=== PATIENT | female | born 1995 | race Caucasian/White ===

== ENCOUNTER 2022-08-10 13:57 | Outpatient (CLI) | payer BC, SELFPAY ==
[2022-08-10 19:36] LABS: Alanine Aminotransferase 25 U/L (6-35); Alkaline Phosphatase 81 U/L (38-126); Anion Gap 13 mmol/L (8-16); Aspartate Amino Transferase 50 U/L (14-36); Bilirubin,Total 0.4 mg/dL (0.2-1.3); Blood Urea Nitrogen 13 mg/dL (7-17); Calcium 9.3 mg/dL (8.4-10.2); Carbon Dioxide 25 mmol/L (22-30); Chloride 100 mmol/L (98-107); Cholesterol 209 mg/dL (0-200); Estimated Glomerular Filt Rate > 60; Glucose 82 mg/dL (65-110); HDL Direct 59 mg/dL; Potassium 3.7 mmol/L (3.4-5.0); Sodium 138 mmol/L (137-145); Triglycerides 255 mg/dL (<150)
[2022-08-10 19:41] LABS: Basophils Percent Auto 0.4 % (0.2-1.2); Eosinophils Absolute Auto 0.1 K/mm3 (0-0.3); Eosinophils Percent Auto 1.4 % (0-4.4); Hematocrit 40.3 % (37.0-47.0); Hemoglobin 13.2 g/dL (12.0-15.0); Immature Granulocyte Absolute 0.01 K/mm3 (0.00-0.031); Immature Granulocyte Percent A 0.1 % (0-0.5); Lymphocytes Absolute Auto 2.28 K/mm3 (0.9-3.2); Lymphocytes Percent Auto 28.8 % (18.3-44.2); Mean Corpuscular HGB Conc 32.8 g/dl (32-36); Mean Corpuscular Hemoglobin 30.3 pg (26-34); Mean Corpuscular Volume 92.6 fl (80-100); Monocytes Absolute Auto 0.5 K/mm3 (0.1-0.6); Monocytes Percent Auto 6.6 % (2.6-8.5); Neutrophils Percent Auto 62.7 % (45.5-73.1); Platelet Count Result 309 k/mm3 (150-375); Red Blood Count 4.35 M/mm3 (4.2-5.4); Red Cell Distribution Width 11.9 % (11.5-14.5); White Blood Count 7.9 K/mm3 (4.5-10.0)
[2022-08-10 19:48] LABS: LDL Cholesterol Direct 115 mg/dL
== END 2022-08-10 13:58 | disposition home or self-care (01) ==
PROVIDERS: PCP Family Medicine; Visit Provider Family Medicine
DX: Z00.00 Encounter for general adult medical examination without abnormal findings (principal)
CPT/HCPCS: 36415; 80053; 80061; 85025

== ENCOUNTER 2023-03-08 13:09 | Outpatient (CLI) | payer BC, SELFPAY ==
[2023-03-09 04:08] LABS: Appearance Urine Clear (Clear); Bilirubin Urine Negative (Negative); Blood Urine Negative (Negative); Color Urine Yellow (Yellow); Glucose Urine UA Negative (Negative); Ketones Urine Negative (Negative); Leukocyte Esterase Ur Negative LEU/UL (Negative); Nitrate Urine Negative (Negative); Protein Urine Negative (Negative); Urobilinogen Urine 0.2 mg/dL (<2.0)
[2023-03-09 07:19] LABS: Add Urine Microscopic? NO
== END 2023-03-08 13:10 | disposition home or self-care (01) ==
LOC: ANHBWCLAB 13:12
PROVIDERS: PCP Family Medicine; Visit Provider Nurse Practitioner
DX: R30.0 Dysuria (principal); R74.01 Elevation of levels of liver transaminase levels
CPT/HCPCS: 81003

== ENCOUNTER 2023-08-15 14:38 | Outpatient (CLI) | payer BC, SELFPAY ==
[2023-08-15 19:13] LABS: Hematocrit 39.6 % (37.0-47.0); Hemoglobin 13.2 g/dL (12.0-15.0); Mean Corpuscular HGB Conc 33.3 g/dl (32-36); Mean Corpuscular Hemoglobin 30.8 pg (26-34); Mean Corpuscular Volume 92.3 fl (80-100); Platelet Count Result 309 k/mm3 (150-375); Red Blood Count 4.29 M/mm3 (4.2-5.4); Red Cell Distribution Width 11.7 % (11.5-14.5); White Blood Count 7.4 K/mm3 (4.5-10.0)
[2023-08-15 19:55] LABS: Hepatitis B Surface Antigen Negative (Negative)
[2023-08-15 20:00] LABS: HAV RESULT Negative (Negative); Hepatitis B Core IgM Result Negative (Negative)
[2023-08-15 20:11] LABS: Alanine Aminotransferase 31 U/L (6-35); Albumin Level 4.9 g/dL (3.5-5.1); Alkaline Phosphatase 74 U/L (38-126); Anion Gap 6 mmol/L (8-16); Aspartate Amino Transferase 48 U/L (14-36); Bilirubin,Total 0.5 mg/dL (0.2-1.3); Blood Urea Nitrogen 8 mg/dL (7-17); Calcium 9.2 mg/dL (8.4-10.2); Carbon Dioxide 30 mmol/L (22-30); Chloride 101 mmol/L (98-107); Cholesterol 215 mg/dL (0-200); Estimated Glomerular Filt Rate > 60; Glucose 85 mg/dL (65-110); HDL Direct 58 mg/dL; Potassium 4.1 mmol/L (3.4-5.0); Sodium 137 mmol/L (137-145); Triglycerides 119 mg/dL (<150)
[2023-08-15 20:12] LABS: Hepatitis C Virus Antibody Negative (Negative)
[2023-08-15 20:22] LABS: LDL Cholesterol Direct 122 mg/dL
== END 2023-08-15 14:39 | disposition home or self-care (01) ==
LOC: ANHBWCLAB 14:39
PROVIDERS: PCP Family Medicine; Visit Provider Family Medicine
DX: R74.01 Elevation of levels of liver transaminase levels (principal); Z00.00 Encounter for general adult medical examination without abnormal findings
CPT/HCPCS: 36415; 80053; 80061; 80074; 85027

== ENCOUNTER 2024-01-25 12:01 | Outpatient (CLI) | payer BC, SELFPAY ==
[2024-01-25 18:58] LABS: Hematocrit 43.3 % (37.0-47.0); Hemoglobin 14.3 g/dL (12.0-15.0); Mean Corpuscular Hemoglobin 30.2 pg (26-34); Mean Corpuscular Volume 91.4 fl (80-100); Mean Platelet Volume 10.2 fl (7.4-10.4); Platelet Count Result 328 k/mm3 (150-375); Red Blood Count 4.74 M/mm3 (4.2-5.4); Red Cell Distribution Width 12.2 % (11.5-14.5); White Blood Count 5.9 K/mm3 (4.5-10.0)
[2024-01-25 19:06] LABS: Alanine Aminotransferase 46 U/L (6-35); Albumin Level 4.9 g/dL (3.5-5.1); Alkaline Phosphatase 65 U/L (38-126); Anion Gap 8 mmol/L (4-12); Aspartate Amino Transferase 83 U/L (14-36); Bilirubin,Total 0.5 mg/dL (0.2-1.3); Blood Urea Nitrogen 13 mg/dL (7-17); Carbon Dioxide 27 mmol/L (22-30); Chloride 104 mmol/L (98-107); Estimated Glomerular Filt Rate > 60; Glucose 83 mg/dL (65-110); Potassium 3.8 mmol/L (3.4-5.0); Sodium 139 mmol/L (137-145)
[2024-01-25 19:25] LABS: Free T4 Free Thyroxine 0.95 ng/mL (0.78-2.19)
[2024-01-25 19:40] LABS: Iron 137 ug/dL (37-170)
[2024-01-25 19:45] LABS: Percent Iron Saturation 42 % (20-50)
[2024-01-25 20:52] LABS: Folic Acid 10.5 ng/mL (2.76->20)
[2024-01-28 03:55] LABS: Thyroid Peroxidase Antibodies <1 IU/mL (<9)
== END 2024-01-25 12:02 | disposition home or self-care (01) ==
PROVIDERS: PCP Nurse Practitioner Adult Health; Visit Provider Nurse Practitioner Adult Health
DX: R61 Generalized hyperhidrosis (principal); R53.83 Other fatigue
CPT/HCPCS: 36415; 80053; 82306; 82607; 82728; 82746; 83540; 83550; 84439; 84443; 85027; 86376

== ENCOUNTER 2024-01-31 10:23 | Outpatient (CLI) | payer BC, SELFPAY ==
--- NOTE | ~2024-01-31 | US_ITS ---
Limited Abdominal Sonogram: Real-time sonographic imaging of the right upper quadrant was performed. Clinical History: Abnormal liver enzyme levels Findings: The liver appears mildly heterogeneous, with no evidence of mass lesion or bile duct dilat ation. Main portal vein demonstrates normal direction of flow. The gallbladder is well distended, and appears normal with no evidence of gallstone or wall thickening. The common bile duct measures 3 mm. The visualized pancreas, aorta, and IVC are unremarkable. Impression: Probable fatty infiltration of liver versus other chronic liver disease. Reviewed, dictated and finalized at location M. Impression: Probable fatty infiltration of liver versus other chronic liver disease.
== END 2024-01-31 10:24 ==
PROVIDERS: PCP Family Medicine; Visit Provider Family Medicine
DX: R74.01 Elevation of levels of liver transaminase levels (principal)
CPT/HCPCS: 76705

== ENCOUNTER 2024-06-28 10:01 | Outpatient (CLI) | payer BC, SELFPAY ==
[2024-06-28 19:29] LABS: Alanine Aminotransferase 57 U/L (6-35); Albumin Level 4.7 g/dL (3.5-5.1); Alkaline Phosphatase 67 U/L (38-126); Aspartate Amino Transferase 85 U/L (14-36); Bilirubin,Total 0.3 mg/dL (0.2-1.3)
== END 2024-06-28 10:02 | disposition home or self-care (01) ==
PROVIDERS: PCP Family Medicine; Visit Provider Family Medicine
DX: Z00.00 Encounter for general adult medical examination without abnormal findings (principal); R74.01 Elevation of levels of liver transaminase levels; F42.9 Obsessive-compulsive disorder, unspecified; R41.89 Other symptoms and signs involving cognitive functions and awareness; R53.83 Other fatigue; R61 Generalized hyperhidrosis; R51.9 Headache, unspecified; M26.609 Unspecified temporomandibular joint disorder, unspecified side
CPT/HCPCS: 36415; 80076

== ENCOUNTER 2025-02-05 07:34 | Outpatient (CLI) | payer BC, SELFPAY ==
--- OUTSIDE RECORDS SUMMARY | 2025-02-05 07:37 | XMS_ITS | Referral Summary ---
Author Organization [facility] Address [facility] [place] [address] Care Team Providers Care Vacuum Bottle Assembler Name Role Phone Tony Purcell MD Primary Care Provider [phone] Allergies Active Allergy Reactions Criticality Noted Date Comments Sulfa (Sulfonamide Antibiotics) Unknown,Hives Medium 1 Medications cyclobenzaprine (FLEXERIL) 10 mg tablet TAKE 1 TABLET BY MOUTH EVERY NIGHT AT BEDTIME NEEDED FOR MUSCLE SPASMS IN THE JAW 02/20/2024 Active escitalopram (LEXAPRO) 10 mg tablet Take 1 tablet (10 mg total) by mouth daily 03/25/2024 Active NuvaRing 0.12-0.015 mg/24 hr vaginal ring 03/30/2024 Active ibuprofen (ADVIL,MOTRIN) 800 mg tablet Take 1 tablet (800 mg total) by mouth 3 (three) times a day as needed for pain 01/25/2024 Active Active Problems Problem Noted Date Diagnosed Date Plantar warts 04/03/2024 Overview (04/03/2024): R Psychophysiological insomnia 05/30/2022 History of COVID-19 11/21/2020 Overview (04/03/2024): Last Assessment & Plan: Onset of symptoms on 11/08/2020, patient has met recovery criteria. Reassurance provided with regards to fatigue, muscle aches, and shortness of breath. Unremarkable exam. Recommend to continue vitamin D for 3 months, multivitamins, adequate hydration. SILVINA (generalized anxiety disorder) 08/28/2020 Overview (04/03/2024): Last Assessment & Plan: Under good control Continue current regimen, refilled fluoxetine 15 mg once daily She plans to establish with therapy She is in process of establishing with new PCP and therapist Recurrent major depressive disorder, in full rem ission 08/28/2020 Overview (04/03/2024): Last Assessment & Plan: Under good control Continue current regimen, tolerating well TMJ (temporomandibular joint syndrome) 9 Acne vulgaris 10/10/2018 Anxiety 08/25/2018 Obsessive compulsive disorder 08/25/2018 Tinnitus 06/09/2017 Gastroesophageal reflux disease 05/12/2017 Arthralgia of shoulder 01/19/2011 Social History Tobacco Use Types Packs/Day Years Used Date Smoking Tobacco: Never Personal Safety Answer Date Recorded Getting School Help Needed Not on file 04/03 Comments Unknown Sex and Gender Information Value Date Recorded Sex Assigned at Not on file Legal 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
--- OUTSIDE RECORDS SUMMARY | 2025-02-05 07:37 | XMS_ITS | Patient Health Record ---
Author Organization [facility] Address [address] [place] [address] Care Team Providers Care Director Of Slot Operations Name Role Phone Jeny Chen Unavailable [phone] Allergies No Known Allergies Reason For Referral No Information Medications Medication SIG (Take, Route, Frequency, Duration) Notes Start Date End Date Status NuvaRing Active FLUoxetine Active Social History Tobacco Use: Social History Observation Description Date Details (start date - stop date) Never Smoker NA - NA Smoking Question Answer Notes Are you a: nonsmoker Problems No Known Problems Plan Of Treatment No Information Insurance Providers Payer Name Payer Address Payer Phone Subscriber Number Group Number Insured Name Patient Relationship to Insured Coverage Start Date Coverage End Date [facility] [address] [place] [phone] [id number] Rubia Ford Self - patient is the insured Medical (General) History Surgical History Surgery Date(Month/Year)
--- OUTSIDE RECORDS SUMMARY | 2025-02-05 07:37 | XMS_ITS | Encounter Summary ---
Author Organization [facility] Address [address] [place] [address] Phone Care Team Providers Care Telephone Operator Receptionist Name Role Phone Iliana Villalobos MD Primary Care Provider Provider, Not On File Primary Care Provider Tony Aquino MD Primary Care Provider [phone] Reason for Visit * Reason Onset Date Comments Medication Refill 07/11/2020 Encounter Details Date Type Department Care Team (Late st Contact Info) Description 07/11/[facility] [address] [place] [address] [place] [address] [place] [id number] Medication Refill Social History Tobacco Use Types Packs/Day Years Used Date Smoking Tobacco: Never Smokeless Tobacco: Never Alcohol Use Standard Drinks/Week Comments Yes 4 (1 standard drink = 0.6 oz pur e alcohol) weekends PHQ-2 Answer Date Recorded Total Score - Questions 1-9 0 12/29 Sexually Active Control Partners Comments Yes Oral Contraceptive Male Comments No Sex and Gender Information Value Date Recorded Sex Assigned at Not on file Legal Sex Female 7:40 PM CDT Gender Identity Not on file Sexual Orientation Not on file 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 * Telephone Encounter - Jessica Matthew - 07/11/2020 8:20 AM CDT Received: []FAX [x]TELEPHONE CALL []MYCHART from: []PHARMACY [x]PATIENT/OTHER regarding medication management. Medication name and dose: Requested Prescriptions Pending Prescriptions Disp Refills ??? FLUoxetine (PROzac) 10 MG Capsule 90 Cap 1 Sig: Take 1 Cap by mouth daily. ??? NuvaRing 0.12-0.015 MG/24HR RING 4 Quantity: (30 day, 90 day, 3 monthly scripts) 30 day Pharmacy preference for this medication: [id number] [place], [place] - [facility] Outcome: [x]Medication pended, routed to surescripts []Medication refused []Informed caller of refills at pharmacy []Additional message to medication management RN []Verbal authorization for written order to pharmacy []Additional message to provider []Verified medication with pharmacy Jessica Medication Management documented in this encounter Plan of Treatment Not on file documented as of this encounter Visit Diagnoses Diagnosis Anxiety Anxiety state, unspecified documented in this encounter Additional Health Concerns Infection Onset Date Last Indicated Resolved Time Respiratory Rule-Out 11/29/2024 11/29/2024 025 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
--- OUTSIDE RECORDS SUMMARY | 2025-02-05 07:37 | XMS_ITS | Data Portability ---
Author Organization [facility] [place] Address [address] [place] [address] Care Team Providers Care Reed Man Name Role Phone LIZ SEQUEIRA Primary Care Provider Assessment Encounter Date Assessment Date Assessment LastModified by Organization Details LastModified Time 04/26/2023 04/26/2023 Annual gynecological exam performed. Patient will come back in a year unless there are new symptoms. [email or web address] Not available 04/26/2023 11:56:56 Plan of Treatment Reminders Order Date Submit Date Provider Last Modified By Organization Details Last Modified Time Details Appointments None recorded. Lab None recorded. Referral None recorded. Procedures None recorded. Surgeries None recorded. Imaging None recorded. Medication Orders NuvaRing 0.12 mg-0.015 mg/24 hr vaginal 2022 023 [id number] [address] [place], [place], [id number], 3 12:05:32 metronidazo le 500 mg tablet 2022 023 [place] [address] [id number] [address] [place], [place], [id number], 3 11:57:35 fluconazole 150 mg tablet 2022 023 [place] [address] [id number], [address] [place], [place], [id number], 3 11:57:31 nystatin-tr iamcinolone 100,000 unit/gram-0 .1 % topical ointment 2022 023 [id number], [address] [place], [place], [id number], 11:57:47 Patient TargetsNo targets recorded. Patient InstructionsNo instructions recorded. Reason for Referral None Reported. Results Created Date Observation Date Name Description Value Unit Range Abnormal Flag Note LastModifiedBy Organization Detail LastModifiedTime 03/30/20 23 03/30/2023 CT/GC AND TRICH OMONA S VAGIN LEIDY (RRNA ), SWAB chlamydia trachomatis, PCR Negati ve negati ve Not Available [facility] (Lab) [address] [place], [address], 03/31/2023 18:18:43 03/30/20 23 03/30/2023 CT/GC AND TRICH OMONA S VAGIN LEIDY (RRNA ), SWAB neisseria gonorrhoeae, PCR Negati ve negati ve Not Available [facility] (Lab) [address] [place], [address], 03/31/2023 18:18:43 03/30/20 23 03/30/2023 CT/GC AND TRICH OMONA S VAGIN LEIDY (RRNA ), SWAB trichomonas vaginalis ribosomal RNA (rrna) Negati ve negati ve Not Available [facility] (Lab) [address] [place], [address], 03/31/2023 18:18:43 03/30/20 23 03/30/2023 VAGIN ITIS/ VAGIN OSIS, DNA PROBE koby sp. detection, direct probe Negati ve negati ve Not Available [facility] (Lab) [address] [place], [address], 03/31/2023 18:18:44 03/30/20 23 03/30/2023 VAGIN ITIS/ VAGIN OSIS, DNA PROBE gardnerella vag. detection, direct probe Negati ve negati ve Not Available [facility] (Lab) [address] [place] [facility], [address], 03/31/2023 18:18:44 03/30/2003/30/2023 VAGIN ITIS/ VAGIN OSIS, DNA PROBE trichomonas vag. detection, direct probe Negati ve negati ve Not Available [facility] (Lab) [address], [place], [address], 03/31/2023 18:18:44 Result Notes None recorded. Procedures Surgical History Date Name Laterality Status Provider Name and Address Organization Details Recorded Time extraction of wisdom tooth completed [facility] 03/30/2023 10:44:15 Imaging Results None recorded. Procedure Notes None recorded. Medical Equipment None Reported. Allergies Allergen ID Allergen Name Allergen Category Reaction Reaction Severity Criticality Documentation Date Start Date Code Code System Note Provider Name and Address Organization Details Recorded Time Substance with sulfonami de structure and antibacte rial mechanism of action (substanc e) medicatio n hives moderate Not available 03/30/2023 [id number] SNOMED [facility] 10:41:54 Medications Name Sig Start Date Stop Date Status Note LastModified by Organization Details LastModified Time neomycin-po lymyxin-hyd rocort 3.5 mg/mL-10,00 0 unit/mL-1 % ear solution INSTILL 3 DROPS IN AFFECTED EAR(S) EVERY 8 HOURS FOR 7 DAYS 03/30 completed Not Available Not Available Not Available trazodone 50 mg tablet Take 1 tablet every day by oral route. active Not Available Not Available No t Available fluconazole 150 mg tablet TAKE 1 TABLET BY MOUTH NOW. REPEAT IN 7 DAYS 04/26 completed Not Available Not Available Not Available fluoxetine 10 mg tablet Take 1 tablet every day by oral route. active Not Available Not Available No t Available metronidazo le 500 mg tablet TAKE 1 TABLET BY MOUTH EVERY 12 HOURS FOR 7 DAYS 04/26 completed Not Available Not Available Not Available nystatin-tr iamcinolone 100,000 unit/gram-0 .1 % topical ointment APPLY TO THE AFFECTED AREA(S) BY TOPICAL ROUTE 2 TIMES PER DAY FOR 5 DAYS 04/26 completed Not Available Not Available Not Available amoxicillin 875 mg tablet 04/26 completed Not Available Not Available Not Available NuvaRing 0.12 mg-0.015 mg/24 hr vaginal Insert 1 vaginal ring every month by vaginal route as directed for 90 days. active Not Available Not Available No t Available Vitals Date Recorded Body height Body weight Systolic blood pressure Diastolic blood pressure Provider Name and Address Organization Details Last Updated DateTime 03/30/2023 162.56 cm 87321.6 g 115 mm[Hg] 75 mm[Hg] Jaja Reich [facility] 03/30/2023 10:41:50 Date Recorded Body height Body mass index (BMI) Body weight Systolic blood pressure Diastolic blood pressure Provider Name and Address Organization Details Last Updated DateTime 04/26/2023 162.56 cm 25.2 kg/m2 06295.08 g 115 mm[Hg] 78 mm[Hg] Olivia Blanc [facility] 11:57:14 Social History Question Answer Notes LastModified by [employer] Details LastModified Time Tobacco Smoking Status Never Smoker Jaja Reich [facility] 03/30/2023 10:44:05 What Is Your Level Of Alcohol Consumption? Occasional Information not available 03/30/2023 Are You Blind Or Do You Have Difficulty Seeing? No Information n ot available 03/30/2023 In The 14 Days Before Symptom Onset, Have You Had Close Contact With A Laboratory-confirm ed COVID-19 While That Case Was Ill? No Information n ot available 03/30/2023 In The 14 Days Before Symptom Onset, Have You Had Close Contact With A Person Who Is Under Investigation For COVID-19 While That Person Was Ill? No Information not available 03/30/2023 Have You Been To An Area Known To Be High Risk For COVID-19? No Information not available 03/30/2023 Are You Deaf Or Do You Have Serious Difficulty Hearing? No Information not available 03/30/2023 Sex: Unknown Functional Status Question Answer Note LastModified by Organizat ion Details LastModified Time Do you have difficulty walking or climbing stairs? No Information not available 03/30/2023 Are you able to walk? YESWOREST Information not available 03/30/2023 Are you able to care for yourself? Yes Information not available 03/30/2023 Do you have difficulty dressing or bathing? No Information not available 03/30/2023 Mental Status None recorded. Family History Relationship Description Onset Age of this Age Resolved Age Notes LastModified by Organization Details LastModified Time Father Asthma Not available 10:43:23 Father Hypertensive disorder Not available 2022 10:43:47 Maternal Grandmother Malignant tumor of breast Not available 2022 10:43:30 Mother Hypercholest erolemia Not available 2022 10:43:50 Paternal Grandfather Malignant tumor of lung Not available 2022 10:43:56 Medical History Condition Response Anxiety Disorder Y Allergies (Food, seasonal, environmental ) Y Depression/ depression Y Gynecological History Statement/Question Response Abnormal Pap N Flow Moderate Date of LMP 04/14/2023 Was last menstrual period normal Y STIs/STDs N HPV Vaccine Y Current Control Method Vaginal Rin g Are cycles usually normal Y Sexually Active? Y Menses Monthly Y Age of first menstrual cycle 13 Date of Last Pap Smear Sexual Problems? N LMP Definite Obstetrics History GPAL:G 0 P 0 0 0 0 Past Encounters Encounter ID Performer Location Encounter Start Date Encounter Closed Date Diagnosis/Indication Diagnosis SNOMED-CT Code Diagnosis ICD10 Code Diagnosis Note [id number] JEAN CARLOS [facility] [place] [address] [address] 03/30/2023 10:24:21 03/30/2023 11:54:50 Vaginitis 51473582 N76.0 suspect BV/yeast vs STIUA normal, cx sentvagini tis panel sentgc/ct/ trich testing sentblood STI panel declinedvu lvar care guidelines discussedc ondom use encouraged Rx sent, R/B/A discussedw ill update patient with results when availableR TC for WWE Time spent in visit is a total of 22 mins with at least 50% of visit consisting of counseling and review of plan of care. Venereal d isease screening 960346350 Z11.3 Urinary symptoms 0840333 08 R39.9 [id number] JEAN CARLOS [place] [address] [address] 04/26/2023 11:42:01 04/26/2023 12:30:14 Gynecologic examination 93096625 Z01.419 Take Calcium with Vitamin D 1200mg daily if not receiving in daily diet. It is strongly advised to have an annual flu shot and up can obtain at most pharmacies . If you have not had a TDap shot in the last 10 years you should obtain one as well. Discussed with patient & provided with informatio n regarding Gardisil vaccine to prevent the 4 strains for HPV that cause cervical cancer if under age 26. Encourage safe sexual practices, to use condoms and limit partners if not already in a monogamous relationsh ip. Do monthly self breast exams. Have mammogram yearly or every other year depending on family history. BRCA testing is now available for patients with strong genetic history of female cancer. If interested contact the office. Engage in daily exercise of low impact aerobic exercise 45-60 minutes 4-5 times weekly. Avoid tobacco and illicit drugs as well as using moderation with alcohol intake less than 1-2 8 oz beverages daily. This lifestyle behavior pattern will lead to less health conditions and longer life span. If BMI greater than 25 weight watchers or dietary consult advised. Patient received above instructio ns, and questions have been answered. If you have any questions please call or respond to this email. Patient was made aware of the patient portal and may obtain a paper copy of today's plan if desired.Blair chappell sentSTD Screen sentGeneti c ScreenColo n ScreenDexa ScreenRout ine Labs Contracept ion care management 540749390 Z30.9 Happy on nuvaring. RF sent x 1yr Health Concerns Section Related Observation LastModified by Organization Detai ls LastModified Time None Recorded Concern Status LastModified by Organization Details LastModified Time None Recorded Advance Directives Directive None Recorded Payers Encounter Date Sequence Insurance Name Policy Number Policy Quinones Covered Member ID Quinones Member ID Guarantor Name 03/30/2023 1 [employer] [id number] Rubia Chaviswell [id number] Rubia Liliana 04/26/2023 1 [facility]: ([place] [id number] Rubia Carie Ford [id number] Rubia Liliana Notes Date Note Type Note Provider Name and Address Organization Details Recorded Time 03/30/2023 text/html 27yopresents for evaluation of vaginal itching and burningsymptoms started 2-3 weeks agonew partner about 2 months agoitching, burning, pain with urinationCondoms for BC, was on NuvaRing but not currently takingneg d/c, odorsneg pelvic painneg n/v/fno hx of abnormal paps JEAN CARLOS [facility] [address], [place], [address], [facility] 03/30/2023 11:52:22 04/26/2023 text/html Annual GYNReport ed bypatient.History:no gynecologic complaints Menstrual cycle:Normal menses Urinary symptoms:No hematuria; No incontinence Vulva:No genital lesion Vagina:Normal vaginal discharge Breast:No breast pain; No breast lump; No nipple discharge Current Contraception:Satisfi ed with current contraception; Nuvaring Sexual complaints:No sexual complaints; No pain during intercourse; Normal libido Menopausal Symptoms:No menopausal symptoms; Normal vaginal lubrication Psychological symptoms:No depression; No anxiety; No PMDD Preventive measures:Encourage self breast examination; Encourage regular exercise; Encourage no tobacco use; Encourage regular mammograms starting age 40; Followed with yearly pap smears JEAN CARLOS [place] [address], [place], [address], [facility] 04/26/2023 12:27:52 OBGyn Episode No OBEpisode recorded.
--- OUTSIDE RECORDS SUMMARY | 2025-02-05 07:38 | XMS_ITS | Clinical Summary ---
Author Organization [facility] Address [facility] [place] [address] Care Team Providers Care System Analyst Name Role Phone Tony Purcell MD Primary Care Provider [phone] Allergies Active Allergy Reactions Criticality Noted Date [...] reflux disease 05/12/2017 Arthralgia of shoulder 01/19/2011 Medical History Medical History Date Comments Anxiety Depression Family History Medical History Relation Name Comments Hypertension Father Cancer Maternal Grandmother Alcohol abuse Paternal Grandfather Lung disease Paternal Grandfather Relation Name Status Comments Father Maternal Grandmother Paternal Grandfather Social History Tobacco Use Types Packs/Day Years Used Date Smoking Tobacco: Never Personal Safety Answer Date Recorded Getting School Help Needed Not on file 04/03 Comments Unknown Sex and Gender Information Value Date Recorded Sex Assigned at Not on file 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 Gender Identity Not on file Sexual Orientation Not on file Obstetrics History Last Filed Vital Signs Vital Sign Reading Time Taken Comments Blood Pressure - - Pulse - - Temperature - - Respiratory Rate - - Oxygen Saturation - - Inhaled Oxygen Concentration - - Weight 70.8 kg (156 lb) 04/03/2024 4:17 PM CDT Height 162.6 cm (5' 4 ) 04/03/2024 4:17 PM CDT Body Mass Index 26.78 04/03/2024 4:17 PM CDT Plan of Treatment Health Maintenance Due Date Last Done Comments Cervical Cancer Screening 1994 Depression Screening 1994 Hepatitis C Screening 1994 HPV Vaccines (2 - 3-dose series) 11/28/2011 10/31/2011 Regular Well Visit/Exam 18-64 2012 Influenza Vaccine (#1) 2024 3, 08/10/2022, 08/21/2020, Additional history exists DTaP/Tdap/Td Vaccine (9 - Td or Tdap) 01/03/2031 01/03/2021, 10/20/2016, 07/18/2006, Additional history exists Hepatitis B Screening Completed 04/05/1995 , 1994, 1994 Varicella Vaccines Completed 05/22/2008, 07/11/1995 Pneumococcal vaccine <65 Aged Out No longer eligible based on patient's age to complete this topic Insurance [employer] [facility] [employer] [place] [address] [place] [id number] Care Teams System Analyst Relationship Specialty Start Date End Date Tony Purcell MD PCP - General Family Practice 04/03/24
--- OUTSIDE RECORDS SUMMARY | 2025-02-05 07:38 | XMS_ITS | Clinical Summary ---
Author Organization [facility] Address [address] [facility], [facility] [address] [place] [address] Phone Care Team Providers Care Combination Building Inspector Name Role Phone Tony Purcell MD Primary Care Provider [phone] Allergies Active Allergy Reactions Criticality Noted Date Comments Sulfa Antibiotics Unknown Medications NUVARING 0.12-0.015 MG/24HR RING 4 8 Active Adapalene-Benzo yl Peroxide (EPIDUO) 0.1-2.5 % GelIndications: Acne vulgaris Apply QD to affected area on face. 1 Tube 1 8 Active Additional Information Patient not taking.Reported on 11/29/2024 fluticasone (FLONASE) 50 MCG/ACT SuspensionIndic ations:Seasonal allergies 1-2 Sprays by Nasal route daily. Use in each nostril as directed. 1 Bottle 1 0 Active Additional Information Patient not taking.Reported on 11/29/2024 cetirizine (ZYRTEC) 10 MG TabletIndicatio ns:Seasonal allergies Take 1 Tab by mouth daily. 90 Tab 3 0 Active Additional Information Patient not taking.Reported on 11/29/2024 FLUoxetine (PROzac) 10 MG CapsuleIndicati ons:Anxiety Take 1 Cap by mouth daily. 90 Cap 1 0 Active Additional Information Patient not taking.Reported on 11/29/2024 cyclobenzaprine (FLEXERIL) 10 MG Tablet take 1 tablet by mouth every night at bedtime as needed Active buPROPion (WELLBUTRIN) 75 MG Tablet 5 Active busPIRone (BUSPAR) 5 MG Tablet Take 5 mg by mouth 2 times daily. 5 Active sertraline (ZOLOFT) 25 MG Tablet Take 25 mg by mouth daily. 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 Pain in limb 05/12/2017 Hyperhidrosis 05/12/2017 Neoplasm of uncertain behavior of skin 05/12/2017 Overview (05/07/2015): R Encounters Date Type Department Care Team Description 11/29/2024 9:35 AM CLIENT ACCOUNT ASSISTANT Urgent Care Visit [facility] [address] [place] [address] Samantha Mcfarland, MANAGER OF COMMUNITY RELATIONS, SECONDARY SOCIAL STUDIES TEACHER Viral upper respiratory tract infection (Primary Dx); Sore throat; Exposure to influenza Discharge Disposition: Discharged to home or Selfcare 11/29/2024 Travel from Last 3 Months Immunizations Immunization Administration Dates Next Due DTAP VACCINE, UNSPECIFIED FORMULATION 07/20/1999 ,01/18/1996,1994 DTP-Hib 01/10/1995,1994 Hepatitis B Vaccine,unspecif ied Formulation 04/05/1995,1994,1994 Hib Vaccine,unspecified Formulation 10/03/1995,0 1994 Human Papillomavirus (HPV) 9 -valent Vaccine 10/31/2011 Influenza Vaccine 08/31/2014,10/04/2012 Influenza Vaccine, Quadrivalent, PF 08/01/2019,1 11/10/2014 MMR Vaccine 07/20/1999,10/03/1995 Meningococcal Polysaccharide Vaccine (MPSV4) 05/22/2008 OPV 07/20/1999, 6,1994,11/0 04/1994 PUR FLU 3+ YRS PRES FREE QUAD IM 09/10/2015 09/10/2016 PUR TDAP 7+ YRS IM 10/20/2016 TDAP Vaccine 07/18/2006 Varicella Vaccine Live 05/22/2008,07/11/1995 Family History Medical History Relation Name Comments No Known Problems Brother Diabetes Father High Cholesterol Father Rheumatoid Arthritis Father Relation Name Status Comments Brother Alive Father Alive Mother Alive Social History Tobacco Use Types Packs/Day Years Used Date Smoking Tobacco: Never Smokeless Tobacco: Never Tobacco Cessation:Counseling Given: No Alcohol Use Standard Drinks/Week Comments Yes 4 [...] file Not on file Not on file Last Filed Vital Signs Vital Sign Reading Time Taken Comments Blood Pressure 102/70 11/29/2024 10:01 AM CLIENT ACCOUNT ASSISTANT Pulse 92 11/29/2024 10:01 AM CLIENT ACCOUNT ASSISTANT Temperature 36.3 C (97.3 F) 11/29/2024 10:01 AM CLIENT ACCOUNT ASSISTANT Respiratory Rate 14 11/29/2024 10:01 AM CLIENT ACCOUNT ASSISTANT Oxygen Saturation 99% 11/29/2024 10:01 AM CLIENT ACCOUNT ASSISTANT Inhaled Oxygen Concentration - - Weight 65.6 kg (144 lb 9.6 oz) 12/03/2019 8:42 A M CLIENT ACCOUNT ASSISTANT Height 162.6 cm (5' 4 ) 12/03/2019 8:42 AM CLIENT ACCOUNT ASSISTANT Body Mass Index 24.82 12/03/2019 8:42 AM CLIENT ACCOUNT ASSISTANT Plan of Treatment Health Maintenance Due Date Last Done Comments Pap Smear 09/30/2021 09/30/2018, 10/25/2016 Influenza Immunization (#1) 07/01/202407/31, 08/10/2022, 08/21/2020, Additional history exists SARS-COV-2 Immunization ( - season) 2024 Cervical Cancer Screening (CCS) 2024 HPV/Cotest 2024 DTaP/Tdap/Td Immunization (9 - Td or Tdap) 01/03/2031 01/03/2021, 10/20/2016, 07/18/2006, Additional history exists Td Immunization Every 10 Years (Adults With 1 Tdap) 01/03/2031 01/03/2021, 10/20/2016, 07/18/2006 Respiratory Syncytial Virus (RSV) Immunization (Adult) (1 - 1-dose 75+ series) 2069 Hepatitis B Immunization Completed 995, 1994, 1994 Meningococcal Immunization (ACWY) Aged Out 05/22/2008 No longer eligible based on patient's age to complete this topic Human Papillomavirus (HPV) Immunization Discontinued 10/31/2011 Hepatitis C Virus (HCV) Screening Completed 06/10/2021 Pneumococcal Immunization Combined Aged Out No longer eligible based on patient's age to complete this topic Rotavirus Immunization Aged Out No lo nger eligible based on patient's age to complete this topic Procedures Procedure Name Priority Date/Time Associated Diagnosis Comments POC GROUP A STREP BY MOLECULAR Routine 11/29/2024 10:06 AM CLIENT ACCOUNT ASSISTANT Sore throat POC INFLUENZA A AND B BY MOLECULAR Routine 11/29/2024 10:05 AM CLIENT ACCOUNT ASSISTANT Sore throat Exposure to influenza from Last 3 Months Results * POC GROUP A STREP BY MOLECULAR (11/29/2024 10:06 AM CLIENT ACCOUNT ASSISTANT) STREP A DNA Negative Negative, Invalid PROCEDURE CONTROL Valid Swab 11/29/2024 10:0 6 AM CLIENT ACCOUNT ASSISTANT Samantha Mcfarland MANAGER OF COMMUNITY RELATIONS, SECONDARY SOCIAL STUDIES TEACHER POINT OF CARE TEST ING (MANUAL) Final Result * POC INFLUENZA A AND B BY MOLECULAR (11/29/2024 10:05 AM CLIENT ACCOUNT ASSISTANT) INFLUENZA A RNA Negative Negative, Invalid INFLUENZA B RNA Negative Negative, Invalid PROCEDURE CONTROL Valid Swab 11/29/2024 10:0 5 AM CLIENT ACCOUNT ASSISTANT Samantha Mcfarland MANAGER OF COMMUNITY RELATIONS, SECONDARY SOCIAL STUDIES TEACHER POINT OF CARE TEST ING (MANUAL) Final Result from Last 3 Months Insurance [facility] [place] [address] Care Teams Combination Building Inspector Relationship Specialty Start Date End Date Tony Purcell MD PCP - General Family Medicine 09/25/24
[2025-02-05 19:16] LABS: Hematocrit 41.7 % (37.0-47.0); Hemoglobin 13.3 g/dL (12.0-15.0); Mean Corpuscular HGB Conc 31.9 g/dl (32-36); Mean Corpuscular Hemoglobin 29.3 pg (26-34); Mean Corpuscular Volume 91.9 fl (80-100); Mean Platelet Volume 10.2 fl (7.4-10.4); Platelet Count Result 298 k/mm3 (150-375); Red Blood Count 4.54 M/mm3 (4.2-5.4); Red Cell Distribution Width 11.9 % (11.5-14.5); White Blood Count 4.5 K/mm3 (4.5-10.0)
[2025-02-05 20:39] LABS: Alanine Aminotransferase 32 U/L (6-35); Albumin Level 4.4 g/dL (3.5-5.1); Alkaline Phosphatase 73 U/L (38-126); Anion Gap 10 mmol/L (4-12); Aspartate Amino Transferase 60 U/L (14-36); Bilirubin,Total 0.4 mg/dL (0.2-1.3); Blood Urea Nitrogen 16 mg/dL (7-17); Calcium 8.9 mg/dL (8.4-10.2); Carbon Dioxide 23 mmol/L (22-30); Chloride 106 mmol/L (98-107); Estimated Glomerular Filt Rate > 60; Glucose 78 mg/dL (65-110); Potassium 4.2 mmol/L (3.4-5.0); Sodium 139 mmol/L (137-145)
[2025-02-05 20:55] LABS: Iron 101 ug/dL (37-170)
[2025-02-05 21:05] LABS: Percent Iron Saturation 25 % (20-50)
[2025-02-05 23:07] LABS: Vitamin B12 > 1000.0 pg/mL (239-931)
== END 2025-02-05 07:35 | disposition home or self-care (01) ==
LOC: ANHBWCLAB 07:35
PROVIDERS: PCP Family Medicine; Visit Provider Family Medicine
DX: Z00.00 Encounter for general adult medical examination without abnormal findings (principal); F42.9 Obsessive-compulsive disorder, unspecified; R41.89 Other symptoms and signs involving cognitive functions and awareness; R53.83 Other fatigue; R61 Generalized hyperhidrosis; R74.01 Elevation of levels of liver transaminase levels
CPT/HCPCS: 36415; 80053; 82248; 82306; 82607; 82728; 83540; 83550; 84443; 85027